=== PATIENT | male | born 2005 | race Two or more races ===

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

== ENCOUNTER 2023-07-07 21:01 | Emergency (ER) | payer MEDICAID ==
[~2023-07-07] VITALS: Ht 177.8 cm; Wt 66.8 kg
[~2023-07-07 21:01] MED LIST: ONDA-144 PO
[2023-07-08] MEDS ORDERED: IBUP-1456 PO (01:46)
[2023-07-08 02:13] VITALS: BP 123/38; PULSE 52; RESP 18; TEMP 98.1; O2SAT 97
== END 2023-07-08 02:08 | disposition home or self-care (01) ==
LOC: ER 21:01
DX: S83.92XA Sprain of unspecified site of left knee, initial encounter (principal); X50.1XXA Overexertion from prolonged static or awkward postures, initial encounter; Y93.66 Activity, soccer; Y92.89 Other specified places as the place of occurrence of the external cause; Y99.8 Other external cause status
CPT/HCPCS: 29505; 73562